=== PATIENT | male | born 1970 | race Asian ===

== ENCOUNTER 2017-11-13 01:40 | Inpatient (IN) | payer OTHER ==
[~2017-11-13] VITALS: Ht 172.7 cm; Wt 85.4 kg
[2017-11-13] VITALS (26 sets, daily range): BP systolic 81–143; BP diastolic 62–106; TEMP 97–99.1; Ht 172.7 cm; Wt 85.4 kg
[~2017-11-13 01:40] MED LIST: ACID REDUCER150 M1 PO; ACID REDUCER20.6 MG PO; AMLODIPINE BESYLATE PO; ASCORBIC ACD500 MG PO; ASPIRIN 81 LOW81 MG PO; ASPIRIN LOW81 MG PO; BACL10TA4 PO; BENADRYL 50M50 MG/ML IM; CLARITIN10 M1 PO; COUMADIN6 MG PO; DIGOX125 MCG PO; DIVA250T2 PO; DIVA500T2 PO; DIVALPROEX250 MG PO; DOCU100C10 PO; ELIQUIS5 MG PO; FISH OIL OMEGA-1 CAP PO; FISH OIL500 M1 PO; FURO40TA93 PO; HALO50IN4 IM; HALO5INJ3 IM; HALOPERIDOL2 MG PO; HI-CAL PO; LEVETIRACET100 MG/ML PO; LEVETIRACETAM PO; MELATONIN3 M1 PO; MELATONIN3 M2 PO; MIRALAX3350 N1 PO; MULTIVITAMI1 PO; OMEPRAZOLE20.6 MGDR PO; ONDA4TAB3 PO; PANTOPRAZOLE PO; PSYLLIUM XX; SERT50TA PO; SPIR50TA8 PO; WARF4TAB7 PO; ZIPR20CA PO
[2017-11-13 03:59] LABS: PLATELET COUNT 169 K/uL (142-355)
[2017-11-13 04:04] LABS: POTASSIUM 3.2 mmol/L (3.6-5.2); SODIUM 141 mmol/L (136-145)
[2017-11-13] MEDS ORDERED: SEROQUEL50 MG PO (18:45)
[2017-11-13] MEDS ORDERED: SEROQUEL200 MG PO (18:46)
[2017-11-14] VITALS (13 sets, daily range): BP systolic 89–118; BP diastolic 50–93; TEMP 97.8–99
[2017-11-14] MEDS ORDERED: LORA2INJ21 INJ (03:58)
[2017-11-14] MEDS ORDERED: ZIPR20IN IM (03:59)
[2017-11-14] MEDS ORDERED: HALO5INJ3 IM (04:01)
[2017-11-14] MEDS ORDERED: METAMUCIL0.52 GM PO (04:03)
[2017-11-14] MEDS ORDERED: SEROQUEL50 MG PO (04:05)
[2017-11-14] MEDS ORDERED: ZANTAC300 MG PO (04:06)
[2017-11-14] MEDS ORDERED: ALUMSUS6 PO (04:07)
[2017-11-14] MEDS ORDERED: TYLENOL325 MG PO ×2 (04:08→04:12)
[2017-11-14] MEDS ORDERED: MAGNSUS68 PO (04:09)
[2017-11-14] MEDS ORDERED: EMOLOIN22 TOP (04:11)
[2017-11-14 06:02] LABS: PLATELET COUNT 179 K/uL (142-355)
[2017-11-14 06:59] LABS: POTASSIUM 3.7 mmol/L (3.6-5.2); SODIUM 134 mmol/L (136-145)
== END 2017-11-14 15:39 | disposition other institution (70) | DRG 292 ==
LOC: ICU 01:40 → EDBD 11-14 15:39
PROVIDERS: Emergency Medicine
DX: I50.9 Heart failure, unspecified (principal); I69.354 Hemiplegia and hemiparesis following cerebral infarction affecting left non-dominant side; Z79.899 Other long term (current) drug therapy
CPT/HCPCS: 36415; 36600; 71045; 80053; 81000; 82550; 82805; 83735; 83880; 84484; 85027; 94760; 96372; J1650; J1940; J2060; J3475; J3480; Q9963

== ENCOUNTER 2018-08-17 12:40 | Emergency (ER) | payer OTHER ==
[~2018-08-17] VITALS: Ht 175.3 cm; Wt 81.6 kg
[~2018-08-17 12:40] MED LIST changes: +ALUMSUS6 PO; +EMOLOIN22 TOP; +LORA2INJ21 INJ; +MAGNSUS68 PO; +METAMUCIL0.52 GM PO; +SEROQUEL200 MG PO; +SEROQUEL50 MG PO; +TYLENOL325 MG PO; +ZANTAC300 MG PO; +ZIPR20IN IM
[2018-08-17 12:45] VITALS: TEMP 97.9
[2018-08-17 13:18] LABS: PLATELET COUNT 170 K/uL (142-355)
[2018-08-17 13:35] LABS: POTASSIUM 3.8 mmol/L (3.6-5.2)
[2018-08-17 14:43] VITALS: BP 135/72
[2018-08-17] MEDS ORDERED: ASPI81TA4 PO (15:27)
[2018-08-17] MEDS ORDERED: FISH OIL 500 MG1 CAP PO (15:44)
[2018-08-17] MEDS ORDERED: LEVE5MLUD PO (15:47)
[2018-08-17] MEDS ORDERED: RISP0.5T2 PO (15:52)
[2018-08-17] MEDS ORDERED: MELATONIN3 M1 PO (15:58)
[2018-08-17] MEDS ORDERED: OMEPRAZOLE20.6 MGDR PO (16:01)
[2018-08-23] MEDS ORDERED: QUET300T PO (18:14)
[2018-08-23] MEDS ORDERED: SERT50TA PO (18:14)
== END 2018-08-17 15:00 | disposition other institution (70) ==
LOC: ED 12:40
PROVIDERS: Family Medicine
DX: F60.3 Borderline personality disorder (principal); Z04.6 Encounter for general psychiatric examination, requested by authority
CPT/HCPCS: 36415; 80053; 85027; 93005; 99285